=== PATIENT | female | born 1990 | race Caucasian/White ===

== ENCOUNTER 2018-03-07 14:32 | Emergency (ER) | payer OTHER ==
[~2018-03-07] VITALS: Ht 154.9 cm; Wt 56.7 kg
[~2018-03-07 14:32] MED LIST: TUSSI PRES-B L120 M1 PO
== END 2018-03-07 20:49 | disposition home or self-care (01) ==
LOC: ER 14:32
DX: K29.70 Gastritis, unspecified, without bleeding (principal); J11.1 Influenza due to unidentified influenza virus with other respiratory manifestations; N39.0 Urinary tract infection, site not specified; B34.9 Viral infection, unspecified

== ENCOUNTER → 2019-08-07 | Emergency (ER) | payer OTHER ==
[~2019-08-07] VITALS: Ht 154.9 cm; Wt 59.4 kg
[~2019-08-07] MED LIST changes: +ZOVIRAX30 GM TOP; +ZOVIRAX800 M1 PO
== END | disposition home or self-care (01) ==
LOC: ER 03:31
DX: B00.1 Herpesviral vesicular dermatitis (principal)